=== PATIENT | female | born 1945 | race Caucasian/White ===

== ENCOUNTER 2017-09-03 17:42 | Emergency (ER) | payer OTHER, MEDICAID ==
[~2017-09-03] VITALS: Ht 157.5 cm; Wt 67.1 kg
[~2017-09-03 17:42] MED LIST: GLIP5TAB13 PO; LISI-600 PO; NEU300 PO
[2017-09-03 17:54] VITALS: BP_SYST 130
[2017-09-03 18:24] LABS: EOSINOPHILS # (AUTO) 0.4 K/uL (0.0-0.4); HEMOGLOBIN 11.5 g/dL (12.0-16.0)
[2017-09-03 18:28] LABS: CALCIUM 9.6 mg/dL (8.4-11.0); CREATININE 0.92 mg/dL (0.55-1.30); POTASSIUM 3.8 mmol/L (3.5-5.1)
[2017-09-03 18:29] LABS: BASOPHILS # (AUTO) 0.1 K/uL (0.0-0.2); BASOPHILS % (AUTO) 0.7 % (0.0-2.0); EOSINOPHILS % (AUTO) 6.2 % (0.0-4.0); HEMATOCRIT 33.4 % (36-48); LYMPHOCYTES # (AUTO) 1.8 K/uL (1.0-5.5); LYMPHOCYTES % (AUTO) 25.7 % (20.5-51.5); MEAN CORPUSCULAR HEMOGLOBIN 27 pg (27-31); MEAN CORPUSCULAR HGB CONC 35 % (32-36); MEAN CORPUSCULAR VOLUME 79 fL (79.0-98.0); MONOCYTES # (AUTO) 0.5 K/uL (0.0-1.0); MONOCYTES % (AUTO) 6.3 % (1.7-9.3); NEUTROPHILS # (AUTO) 4.4 K/uL (1.8-7.7); NEUTROPHILS % (AUTO) 61.1 % (40.0-70.0); PLATELET COUNT (AUTO) 370 K/uL (130-430); RED BLOOD CELL COUNT(AUTO) 4.22 MIL/uL (4.2-6.2); RED CELL DISTRIBUTION WIDTH 13.9 % (9.0-15.0); WHITE BLOOD COUNT (AUTO) 7.2 K/uL (4.8-10.8)
[2017-09-03 18:33] LABS: ALBUMIN 3.8 g/dL (3.4-4.8); TOTAL BILIRUBIN 0.2 mg/dL (0.0-1.0)
[2017-09-03] MEDS ORDERED: NACL 0.9% 1,000 ML IV ONE (18:45)
[2017-09-03] MEDS ORDERED: MECLIZINE HCL 25 MG TABLET (ANITVERT) PO ONE (19:15)
[2017-09-03] MEDS ORDERED: DEXTROSE 50% JECT 50 ML DISP.SYRIN ONE (19:44)
[2017-09-03] MEDS ORDERED: DEXTROSE 50% JECT 50 ML DISP.SYRIN IVP ONE (19:45)
[2017-09-03 20:39] VITALS: BP_SYST 143
== END 2017-09-03 20:39 | disposition home or self-care (01) ==
LOC: SED 17:42
DX: E11.65 Type 2 diabetes mellitus with hyperglycemia (principal); I10 Essential (primary) hypertension; Z79.4 Long term (current) use of insulin; Z90.710 Acquired absence of both cervix and uterus; Z86.79 Personal history of other diseases of the circulatory system
CPT/HCPCS: 36415; 70450; 71045; 80053; 84484; 85025; 93005; 96361; 96374; 99285; J7030; J8597

== ENCOUNTER 2017-10-22 15:43 | Outpatient (CLI) | payer OTHER, MEDICAID | END 2017-10-22 20:46 | disposition home or self-care (01) | LOC: SMA 15:43 | PROVIDERS: ATTEND Internal Medicine | DX: Z12.31 Encounter for screening mammogram for malignant neoplasm of breast (principal) | CPT/HCPCS: 77067 ==

== ENCOUNTER 2018-12-09 06:09 | Observation (INO) | payer OTHER, MEDICAID ==
[~2018-12-09] VITALS: Ht 157.5 cm; Wt 68.0 kg
[2018-12-09] MEDS ORDERED: NACL 0.9% 1,000 ML IV ONE (06:13)
[2018-12-09 06:14] VITALS: BP_SYST 150
[2018-12-09] MEDS ORDERED: KETOROLAC TROMETHAMINE 15 MG VIAL IVP ONE (06:30)
[2018-12-09] MEDS ORDERED: ONDANSETRON HCL 4 MG/2 ML VIAL IVP ONE (06:30)
[2018-12-09 06:54] LABS: BASOPHILS % (AUTO) 0.4 % (0.0-2.0); EOSINOPHILS # (AUTO) 0.2 K/uL (0.0-0.4); EOSINOPHILS % (AUTO) 2.7 % (0.0-4.0); HEMATOCRIT 32.7 % (36-48); HEMOGLOBIN 11.2 g/dL (12.0-16.0); LYMPHOCYTES % (AUTO) 12.9 % (20.5-51.5); MEAN CORPUSCULAR HEMOGLOBIN 28 pg (27-31); MEAN CORPUSCULAR HGB CONC 34 % (32-36); MEAN CORPUSCULAR VOLUME 80 fL (79.0-98.0); MONOCYTES # (AUTO) 0.5 K/uL (0.0-1.0); MONOCYTES % (AUTO) 6.9 % (1.7-9.3); NEUTROPHILS % (AUTO) 77.1 % (40.0-70.0); PLATELET COUNT (AUTO) 380 K/uL (130-430); RED BLOOD CELL COUNT(AUTO) 4.07 MIL/uL (4.2-6.2); RED CELL DISTRIBUTION WIDTH 13.7 % (9.0-15.0); WHITE BLOOD COUNT (AUTO) 7.8 K/uL (4.8-10.8)
[2018-12-09 07:05] LABS: ANION GAP 14 (5-15); CALCIUM 8.3 mg/dL (8.4-11.0); CHLORIDE 88 mmol/L (98-107); GLUCOSE 229 mg/dL (70-99); POTASSIUM 3.3 mmol/L (3.5-5.1); SODIUM SERUM 125 mmol/L (136-145); UREA NITROGEN, BLOOD 16 mg/dL (8-21)
[2018-12-09 07:14] LABS: ALANINE AMINOTRANSFERASE 23 U/L (12-78); ALBUMIN 3.5 g/dL (3.4-4.8); ASPARTATE AMINOTRANSFERASE 16 U/L (10-37); TOTAL BILIRUBIN 0.5 mg/dL (0.0-1.0)
[2018-12-09] MEDS ORDERED: ASPIRIN 81 MG TAB.CHEW PO ONE (07:30)
[2018-12-09] MEDS ORDERED: METF1000 PO (07:30)
[2018-12-09] MEDS ORDERED: LOSA25TA3 PO (07:30)
[2018-12-09] MEDS ORDERED: INSU100V SQ (07:30)
[2018-12-09] MEDS ORDERED: INSU100V9 SQ (07:30)
[2018-12-09 08:07] LABS: BILIRUBIN,URINE NEGATIVE (NEGATIVE); BLOOD, URINE NEGATIVE (NEGATIVE); CLARITY/URINE CLEAR (CLEAR); COLOR,URINE YELLOW (YELLOW); GLUCOSE,URINE 1+ (NEGATIVE); KETONES,URINE TRACE (NEGATIVE); LEUKOCYTE ESTERASE ,URINE 1+ (NEGATIVE); NITRITE, URINE NEGATIVE (NEGATIVE); PH,URINE 6.5 (5.0-8.0); PROTEIN URINE NEGATIVE (NEGATIVE); UROBILINOGEN,URINE 0.2 (0.2-1.0)
[2018-12-09 08:11] LABS: BACTERIA,URINE MANY /HPF (None Seen); RBC,URINE 0-3 /HPF (0-3); WBC,URINE 20-50 /HPF (0-3)
[2018-12-09 08:12] VITALS: BP_SYST 139
[2018-12-09] MEDS ORDERED: DEXTROSE 50% JECT 50 ML DISP.SYRIN IVP PRN (10:45)
[2018-12-09] MEDS: NACL 0.9% 1,000 ML IV SCH (13:40)
[2018-12-09 15:22] VITALS: BP_SYST 147
[2018-12-09] MEDS: INSULIN REGULAR, HUMAN 100 UNITS/ML, 10 ML VIAL (humuLIN R) SUBCUT PRN ×2 (17:21→23:45)
[2018-12-09 20:36] VITALS: BP_SYST 142
[2018-12-10 01:27] VITALS: BP_SYST 113
[2018-12-10] MEDS: INSULIN REGULAR, HUMAN 100 UNITS/ML, 10 ML VIAL (humuLIN R) SUBCUT PRN ×2 (05:08→16:08)
[2018-12-10] MEDS: NACL 0.9% 1,000 ML IV SCH (05:09)
[2018-12-10 06:40] LABS: BASOPHILS % (AUTO) 0.6 % (0.0-2.0); EOSINOPHILS # (AUTO) 0.3 K/uL (0.0-0.4); EOSINOPHILS % (AUTO) 5.3 % (0.0-4.0); HEMATOCRIT 31.7 % (36-48); HEMOGLOBIN 10.6 g/dL (12.0-16.0); LYMPHOCYTES # (AUTO) 1.1 K/uL (1.0-5.5); LYMPHOCYTES % (AUTO) 20.3 % (20.5-51.5); MEAN CORPUSCULAR HEMOGLOBIN 28 pg (27-31); MEAN CORPUSCULAR HGB CONC 33 % (32-36); MEAN CORPUSCULAR VOLUME 82 fL (79.0-98.0); MONOCYTES # (AUTO) 0.5 K/uL (0.0-1.0); MONOCYTES % (AUTO) 8.7 % (1.7-9.3); NEUTROPHILS # (AUTO) 3.4 K/uL (1.8-7.7); NEUTROPHILS % (AUTO) 65.1 % (40.0-70.0); PLATELET COUNT (AUTO) 335 K/uL (130-430); RED BLOOD CELL COUNT(AUTO) 3.85 MIL/uL (4.2-6.2); RED CELL DISTRIBUTION WIDTH 13.8 % (9.0-15.0)
[2018-12-10 07:24] LABS: ALANINE AMINOTRANSFERASE 15 U/L (12-78); ALBUMIN 2.8 g/dL (3.4-4.8); ASPARTATE AMINOTRANSFERASE 9 U/L (10-37); CALCIUM 8.3 mg/dL (8.4-11.0); CHLORIDE 104 mmol/L (98-107); CREATININE 0.81 mg/dL (0.55-1.30); GLUCOSE 126 mg/dL (70-99); POTASSIUM 3.9 mmol/L (3.5-5.1); SODIUM SERUM 133 mmol/L (136-145); THYROID STIMULATING HORMONE 1.15 uIu/mL (0.34-4.82); TOTAL BILIRUBIN 0.3 mg/dL (0.0-1.0); UREA NITROGEN, BLOOD 17 mg/dL (8-21)
[2018-12-10 07:32] LABS: ANION GAP < 3 (5-15)
[2018-12-10 07:35] LABS: WHITE BLOOD COUNT (AUTO) 5.3 K/uL (4.8-10.8)
[2018-12-10] MEDS ORDERED: LISINOPRIL 20 MG TABLET PO SCH (09:00)
[2018-12-10 09:27] VITALS: BP_SYST 146
[2018-12-10 12:00] VITALS: BP_SYST 150
[2018-12-10 15:21] VITALS: BP_SYST 150
== END 2018-12-10 16:02 | disposition home or self-care (01) ==
LOC: SED 06:09 → STU 07:40
PROVIDERS: ADMIT Internal Medicine Hospice and Palliative Medicine; ATTEND Internal Medicine Hospice and Palliative Medicine
DX: E87.1 Hypo-osmolality and hyponatremia (principal); R51 Headache; R11.0 Nausea; E11.9 Type 2 diabetes mellitus without complications; Z90.710 Acquired absence of both cervix and uterus; I10 Essential (primary) hypertension; R79.89 Other specified abnormal findings of blood chemistry
CPT/HCPCS: 36415 ×2; 70450; 71045; 80053 ×2; 81000; 82962 ×2; 83605; 84443; 84484; 85025 ×2; 87040; 87086; 87186; 93005; 93306; 96372 ×2; 96374; 96375; 99285; G0378 ×2; J1815; J1885; J2405; J7030 ×2

== ENCOUNTER 2019-01-30 13:36 | Outpatient (CLI) | payer OTHER, MEDICAID ==
[~2019-01-30 13:36] MED LIST changes: -GLIP5TAB13 PO; +INSU100V SQ; +INSU100V9 SQ; +LOSA25TA3 PO; +METF1000 PO; -NEU300 PO
== END 2019-01-31 16:29 | disposition home or self-care (01) ==
LOC: SMA 13:36
PROVIDERS: ATTEND Internal Medicine
DX: Z12.31 Encounter for screening mammogram for malignant neoplasm of breast (principal)
CPT/HCPCS: 77067

== ENCOUNTER 2020-01-07 08:45 | Emergency (ER) | payer OTHER, MEDICAID ==
[~2020-01-07] VITALS: Ht 149.9 cm; Wt 54.4 kg
[2020-01-07 08:50] VITALS: BP_SYST 141
--- NOTE | 2020-01-07 08:51 | NUR ---
Patient presented to ER C/O urinary problem. Patient ambulatory to ER, AAOx4, pain with urination, denies pain at this time, denies N/V/D. Patient states she has urinary frequency, burning with urination, and chills x7 days, PT reports Hx Diabetes.
--- NOTE | 2020-01-07 08:53 | NUR ---
SU Mcfarland at bedside examining patient.
[2020-01-07] MEDS: cefTRIAXone 1 GM in LIDOCAINE 1%, 20 ML MDV 2.1 ML IM ONE (09:45)
[2020-01-07 09:55] VITALS: BP_SYST 138
[2020-01-07 09:55] LABS: BILIRUBIN,URINE NEGATIVE (NEGATIVE); BLOOD, URINE NEGATIVE (NEGATIVE); CLARITY/URINE CLEAR (CLEAR); COLOR,URINE YELLOW (YELLOW); GLUCOSE,URINE TRACE (NEGATIVE); KETONES,URINE NEGATIVE (NEGATIVE); LEUKOCYTE ESTERASE ,URINE 1+ (NEGATIVE); NITRITE, URINE NEGATIVE (NEGATIVE); PH,URINE 6.5 (5.0-8.0); PROTEIN URINE NEGATIVE (NEGATIVE); UROBILINOGEN,URINE 0.2 (0.2-1.0)
--- NOTE | 2020-01-07 09:55 | NUR ---
Patient given written and verbal discharge instructions and verbalizes understanding. ER MD discussed with patient the results and treatment provided. Patient in stable condition. ID arm band removed. IV catheter removed intact and dressing applied, no active bleeding. Rx of MACROBID given. Patient educated on pain management and to follow up with PMD. Pain Scale 0/10. Opportunity for questions provided and answered. Medication side effect fact sheet provided.
[2020-01-07 10:06] LABS: BACTERIA,URINE MODERATE /HPF (None Seen); RBC,URINE 0-3 /HPF (0-3)
== END 2020-01-07 09:55 | disposition home or self-care (01) ==
LOC: SED 08:45
DX: N39.0 Urinary tract infection, site not specified (principal); I10 Essential (primary) hypertension; E11.9 Type 2 diabetes mellitus without complications; Z79.4 Long term (current) use of insulin; Z79.899 Other long term (current) drug therapy
CPT/HCPCS: 81000; 87086; 87186; 96372; 99283; J0696; J2001

== ENCOUNTER 2020-04-26 11:50 | Emergency (ER) | payer OTHER, MEDICAID ==
[~2020-04-26] VITALS: Ht 165.1 cm; Wt 66.7 kg
[2020-04-26 11:50] VITALS: BP_SYST 139
== END 2020-04-26 13:45 | disposition home or self-care (01) ==
LOC: SED 11:50
DX: R30.0 Dysuria (principal); I10 Essential (primary) hypertension; E11.9 Type 2 diabetes mellitus without complications; Z79.4 Long term (current) use of insulin; Z79.899 Other long term (current) drug therapy; Z90.710 Acquired absence of both cervix and uterus
CPT/HCPCS: 81002; 82962; 87086; 99283

== ENCOUNTER 2020-05-01 15:34 | Inpatient (IN) | payer OTHER, MEDICAID, SELFPAY ==
[~2020-05-01] VITALS: Ht 157.5 cm; Wt 68.0 kg
[2020-05-01 15:35] VITALS: BP_SYST 113
--- NOTE | 2020-05-01 15:35 | NUR ---
TRIAGED AND BROUGHT INTO FAST TRACK IMMEDIATELY. PLACED IN BED AND REPORT GIVEN TO GRACIELA
--- NOTE | 2020-05-01 15:45 | NUR ---
PT BIB STATES COUGHING AND SOB FOR LAST 2 DAYS, BODY ACHES, WEAK, FATIGUED. PRESENTS WITH O2 SAT ON ROOM AIR 87-88%. AAOX4, OTHER V/S STABLE
--- NOTE | 2020-05-01 15:46 | NUR ---
PT PLACED ON NC@ 5L/MIN 02 SAT 95%, TOLERATING WELL
--- NOTE | 2020-05-01 16:15 | NUR ---
# 22 gauge angiocath placed to R HAND. Use of asceptic technique. Opsite placed over site. Blood return noted. Blood for lab drawn from site. Flushed with 10 cc of normal saline. No evidence of infiltration noted. Patient tolerated well.
--- NOTE | 2020-05-01 16:15 | NUR ---
PORTABLE X-RAY AT THE BEDSIDE
[2020-05-01 17:09] LABS: BASOPHILS % (AUTO) 0.4 % (0.0-2.0); EOSINOPHILS % (AUTO) 0.1 % (0.0-4.0); HEMATOCRIT 32.4 % (36-48); HEMOGLOBIN 10.9 g/dL (12.0-16.0); LYMPHOCYTES # (AUTO) 0.6 K/uL (1.0-5.5); LYMPHOCYTES % (AUTO) 7.4 % (20.5-51.5); MEAN CORPUSCULAR HEMOGLOBIN 27 pg (27-31); MEAN CORPUSCULAR HGB CONC 34 % (32-36); MEAN CORPUSCULAR VOLUME 80 fL (79.0-98.0); MONOCYTES # (AUTO) 0.5 K/uL (0.0-1.0); MONOCYTES % (AUTO) 5.6 % (1.7-9.3); NEUTROPHILS # (AUTO) 7.2 K/uL (1.8-7.7); NEUTROPHILS % (AUTO) 86.5 % (40.0-70.0); PLATELET COUNT (AUTO) 320 K/uL (130-430); RED BLOOD CELL COUNT(AUTO) 4.04 MIL/uL (4.2-6.2); RED CELL DISTRIBUTION WIDTH 14.4 % (9.0-15.0); WHITE BLOOD COUNT (AUTO) 8.3 K/uL (4.8-10.8)
[2020-05-01 17:32] LABS: ANION GAP 13 (5-15); CALCIUM 7.7 mg/dL (8.4-11.0); CHLORIDE 93 mmol/L (98-107); CREATININE 1.42 mg/dL (0.55-1.30); GLUCOSE 244 mg/dL (70-99); POTASSIUM 3.8 mmol/L (3.5-5.1); SODIUM SERUM 126 mmol/L (136-145); UREA NITROGEN, BLOOD 24 mg/dL (8-21)
[2020-05-01 17:37] LABS: ALANINE AMINOTRANSFERASE 20 U/L (12-78); ALBUMIN 2.8 g/dL (3.4-4.8); ASPARTATE AMINOTRANSFERASE 26 U/L (10-37); TOTAL BILIRUBIN 0.3 mg/dL (0.0-1.0)
--- NOTE | 2020-05-01 17:58 | NUR ---
# 16 FR In and Out catheter with use of sterile technique. Immediate return of 20 ml CLEAR, YELLOW urine noted. Urine sample collected and sent to lab. Pt tolerated procedure WELL. Patient unable to toilet self.
[2020-05-01 18:22] LABS: BILIRUBIN,URINE NEGATIVE (NEGATIVE); BLOOD, URINE NEGATIVE (NEGATIVE); COLOR,URINE YELLOW (YELLOW); GLUCOSE,URINE TRACE (NEGATIVE); KETONES,URINE TRACE (NEGATIVE); LEUKOCYTE ESTERASE ,URINE NEGATIVE (NEGATIVE); NITRITE, URINE NEGATIVE (NEGATIVE); PROTEIN URINE 1+ (NEGATIVE); UROBILINOGEN,URINE 0.2 (0.2-1.0)
[2020-05-01 18:32] LABS: INR 0.9 (0.8-1.2); PROTHROMBIN TIME 9.2 SECS (9.5-12.5)
[2020-05-01 18:41] LABS: CLARITY/URINE SLIGHTLY HAZY (CLEAR)
[2020-05-01 18:45] LABS: BACTERIA,URINE FEW /HPF (None Seen); MUCUS,URINE None Seen /LPF (None Seen); RBC,URINE NONE SEEN /HPF (0-3); URINE AMORPHOUS URATE 2+ /HPF (None Seen); WBC,URINE 0-3 /HPF (0-3)
[2020-05-01] MEDS ORDERED: MAG-AL HYDROX/SIMETH 30 ML UDC PO ONE (19:00)
[2020-05-01] MEDS ORDERED: ONDANSETRON HCL 4 MG/2 ML VIAL IVP ONE (19:00)
[2020-05-01] MEDS ORDERED: ACETAMINOPHEN 650 MG SUPP.RECT RC ONE (19:00)
[2020-05-01] MEDS ORDERED: ACETAMINOPHEN 500 MG TABLET ONE (19:11)
[2020-05-01] MEDS ORDERED: AZITHROMYCIN 500 MG in NS 250 ML IV SCH (19:15)
--- NOTE | 2020-05-01 19:18 | NUR ---
O2 SAT DECREASING, PT PLACED ON SIMPLE MASK@ 7L/MIN, O2 SAT 96%
[2020-05-01] MEDS ORDERED: cefTRIAXone 2 GM VIAL ONE (19:33)
[2020-05-01] MEDS ORDERED: AZITHROMYCIN 500 MG/VIAL (ZITHROMAX) IV ONE (19:33)
--- NOTE | 2020-05-01 19:45 | NUR ---
REPORT GIVEN TO CHAY CLAROS FOR CONTINUING CARE
--- NOTE | 2020-05-01 19:47 | NUR ---
Report received from Ginger CARTWRIGHT for continuation of care.
[2020-05-01] MEDS ORDERED: DEXAMETHASONE SOD PHOSPHATE 10 MG/ML VIAL IVP SCH (20:30)
--- NOTE | 2020-05-01 21:00 | NUR ---
Pt moved to bed 8.
[2020-05-01] MEDS ORDERED: ENOXAPARIN SODIUM 30 MG/0.3 ML SYRINGE ONE (22:17)
[2020-05-01 22:38] LABS: FIBRINOGEN 510 mg/dL (200-400)
--- NOTE | 2020-05-01 22:42 | NUR ---
Update given to daughter Lizzy.
[2020-05-01] MEDS: ENOXAPARIN SODIUM 30 MG/0.3 ML SYRINGE SUBCUT SCH (22:50)
--- NOTE | 2020-05-01 23:37 | NUR ---
[facility].
--- NOTE | 2020-05-01 23:44 | NUR ---
ADMISSION NOTE Received patient from ER via gurney. Patient admitted with diagnosis of COVID PNA. Patient is awake, alert, oriented X 4. Patient oriented to hospital room, call light, toileting, pain management and safety-teach back done. Patient informed that HIGINIO will be HER nurse and that their room number is 131B. Personal belongings checked and Belongings List documented. Call light within reach.
[2020-05-01 23:45] VITALS: BP_SYST 110
[2020-05-01] MEDS: NORMAL SALINE 5 ML DISP.SYRIN IVF SCH (23:53)
--- NOTE | 2020-05-01 23:53 | NUR ---
Endorsed accucheck to Julissa CARTWRIGHT. POC not working in ER.
--- NOTE | 2020-05-02 02:58 | NUR ---
CONSULTATION PAGED/CALLED Reason for Consultation: COVID Person Who was Notified: GERALDO Consulting Physician: CAROL Special Shopper Specialty: Ordering Physician: MARCIA
[2020-05-02] MEDS: INSULIN REGULAR, HUMAN 100 UNITS/ML, 10 ML VIAL (humuLIN R) SUBCUT PRN ×2 (05:28→11:32)
[2020-05-02] MEDS: NORMAL SALINE 5 ML DISP.SYRIN IVF SCH ×3 (05:31→23:07)
[2020-05-02 08:00] VITALS: BP_SYST 101
[2020-05-02 08:35] LABS: BASOPHILS % (AUTO) 0.1 % (0.0-2.0); HEMATOCRIT 30.6 % (36-48); HEMOGLOBIN 10.1 g/dL (12.0-16.0); LYMPHOCYTES # (AUTO) 0.4 K/uL (1.0-5.5); MEAN CORPUSCULAR HEMOGLOBIN 27 pg (27-31); MEAN CORPUSCULAR HGB CONC 33 % (32-36); MEAN CORPUSCULAR VOLUME 82 fL (79.0-98.0); MONOCYTES # (AUTO) 0.1 K/uL (0.0-1.0); MONOCYTES % (AUTO) 3.2 % (1.7-9.3); NEUTROPHILS % (AUTO) 88.7 % (40.0-70.0); PLATELET COUNT (AUTO) 311 K/uL (130-430); RED BLOOD CELL COUNT(AUTO) 3.76 MIL/uL (4.2-6.2); RED CELL DISTRIBUTION WIDTH 14.2 % (9.0-15.0); WHITE BLOOD COUNT (AUTO) 4.5 K/uL (4.8-10.8)
[2020-05-02] MEDS: lisinopriL 20 MG TABLET PO SCH (08:35)
[2020-05-02] MEDS ORDERED: ENOXAPARIN SODIUM 40 MG/0.4 ML SYRINGE ONE (08:39)
[2020-05-02] MEDS: ENOXAPARIN SODIUM 30 MG/0.3 ML SYRINGE SUBCUT SCH ×2 (08:43→21:00)
[2020-05-02] MEDS ORDERED: ENOXAPARIN SODIUM 30 MG/0.3 ML SYRINGE ONE ×2 (08:43→20:38)
[2020-05-02 09:00] LABS: ALANINE AMINOTRANSFERASE 16 U/L (12-78); ALBUMIN 2.5 g/dL (3.4-4.8); ANION GAP 16 (5-15); ASPARTATE AMINOTRANSFERASE 22 U/L (10-37); CALCIUM 8.3 mg/dL (8.4-11.0); CHLORIDE 97 mmol/L (98-107); POTASSIUM 4.8 mmol/L (3.5-5.1); SODIUM SERUM 130 mmol/L (136-145); TOTAL BILIRUBIN 0.3 mg/dL (0.0-1.0); UREA NITROGEN, BLOOD 30 mg/dL (8-21)
[2020-05-02 09:47] LABS: GLUCOSE 491 mg/dL (70-99)
[2020-05-02 11:16] VITALS: BP_SYST 142
[2020-05-02 11:43] LABS: C-REACTIVE PROTEIN QUANT 13.8 mg/dL (0-0.5)
[2020-05-02] MEDS ORDERED: INSULIN GLARGINE 100 UNITS/ML 10 ML VIAL SUBCUT ONE (12:30)
--- NOTE | 2020-05-02 12:34 | NUR ---
HIGH ALERT NOTE: Called Dr. Ramos back at phone no. [phone] identified within the medical roster to verify physician authenticity for insulin orders humalog sliding scale and lantus 25 units SC one dose now and bedtime daily
[2020-05-02] MEDS ORDERED: DEXTROSE 50%-WATER 50 ML DISP.SYRIN IVP PRN (12:45)
[2020-05-02] MEDS ORDERED: D5W 1,000 ML IV PRN (12:45)
[2020-05-02] MEDS ORDERED: GLUCOSE (DEXTROSE) ORAL GEL -Adults PO PRN (12:45)
[2020-05-02 13:42] VITALS: BP_SYST 115
--- NOTE | 2020-05-02 14:20 | NUR ---
Note Spoke to pt's daughter Lizzy and questions/concerns were answered at this time. Update on pt's status given. Call light within reach.
--- NOTE | 2020-05-02 16:30 | NUR ---
Note Pt was given hygiene care for urine incontinence in bed. Pt able to turn from side to side in bed. Pt has had her O2 at 6L/nc. Call light within reach.
[2020-05-02] MEDS: INSULIN LISPRO SLIDING SCALE 100 UNITS/ML VIAL (humaLOG) SUBCUT PRN (16:40)
[2020-05-02] MEDS: HYDROcodone/ACETAMIN 5-325 MG TAB (NORCO/ VICODIN) PO PRN (16:40)
--- NOTE | 2020-05-02 17:05 | NUR ---
Note Dr Lugo ([facility]) on the floor to assess pt and write orders at this time.
[2020-05-02 17:10] VITALS: BP_SYST 130
[2020-05-02] MEDS: NACL 0.9% 1,000 ML IV SCH (17:49)
[2020-05-02] MEDS: AZITHROMYCIN 500 MG in NS 250 ML IV SCH (18:39)
--- NOTE | 2020-05-02 18:40 | NUR ---
Note Pt sitting up in bed eating her dinner. IVF's infusing through right hand IV site. Pt was checked on q1' and PRN all shift for needs and care. Call light within reach.
[2020-05-02] MEDS ORDERED: DEXAMETHASONE SOD PHOSPHATE 10 MG/ML VIAL IVP SCH (20:30)
[2020-05-02] MEDS: DEXAMETHASONE SOD PHOSPHATE 10 MG/ML VIAL IVP SCH (21:00)
[2020-05-02] MEDS: INSULIN GLARGINE 100 UNITS/ML 10 ML VIAL SUBCUT SCH (22:15)
[2020-05-02 23:38] VITALS: BP_SYST 119
[2020-05-03 01:33] VITALS: BP_SYST 130
[2020-05-03] MEDS: NACL 0.9% 1,000 ML IV SCH ×3 (03:15→23:51)
[2020-05-03] MEDS: NORMAL SALINE 5 ML DISP.SYRIN IVF SCH ×3 (05:06→21:05)
--- NOTE | 2020-05-03 05:55 | NUR ---
This RN successfully placed new 22g IV access in pt RFA. Flushed, blood return noted with no pain or infiltration. Will continue to monitor.
[2020-05-03 08:00] VITALS: BP_SYST 132
[2020-05-03 08:03] LABS: ALANINE AMINOTRANSFERASE 17 U/L (12-78); ALBUMIN 2.3 g/dL (3.4-4.8); ANION GAP 11 (5-15); ASPARTATE AMINOTRANSFERASE 21 U/L (10-37); CALCIUM 7.9 mg/dL (8.4-11.0); CHLORIDE 102 mmol/L (98-107); CREATININE 1.04 mg/dL (0.55-1.30); GLUCOSE 327 mg/dL (70-99); POTASSIUM 4.5 mmol/L (3.5-5.1); SODIUM SERUM 136 mmol/L (136-145); TOTAL BILIRUBIN 0.2 mg/dL (0.0-1.0); UREA NITROGEN, BLOOD 26 mg/dL (8-21)
[2020-05-03] MEDS ORDERED: ENOXAPARIN SODIUM 30 MG/0.3 ML SYRINGE ONE ×2 (08:23→20:10)
[2020-05-03] MEDS: lisinopriL 20 MG TABLET PO SCH (08:24)
[2020-05-03] MEDS: ENOXAPARIN SODIUM 30 MG/0.3 ML SYRINGE SUBCUT SCH ×2 (08:24→21:04)
[2020-05-03] MEDS: HYDROcodone/ACETAMIN 5-325 MG TAB (NORCO/ VICODIN) PO PRN (08:40)
[2020-05-03] MEDS: INSULIN LISPRO SLIDING SCALE 100 UNITS/ML VIAL (humaLOG) SUBCUT PRN ×2 (12:33→18:07)
[2020-05-03 18:10] VITALS: BP_SYST 136
--- NOTE | 2020-05-03 18:50 | NUR ---
NOTE pT RESTING IN BED WITH HOB AT 75' TO EAT HER DINNER. PT HAS O2 ON AT 6/NC. IV IN RIGHT FOREARM INTACT AND PATENT INFUSING IVF'S WELL. PT WAS CHECKED ON Q1' AND PRN ALL SHIFT FOR NEEDS AND CARE. CALL LIGHT WITHIN REACH. SPOKE TO PT'S DAUGHTER MARY AND UPDATE ON PT'S STATUS GIVEN AND QUESTIONS/CONCERNS WERE ANSWERED.
[2020-05-03] MEDS ORDERED: guaiFENesin/DEXTROMETHORPHAN 10 ML UDC PO PRN (19:00)
[2020-05-03] MEDS: AZITHROMYCIN 500 MG in NS 250 ML IV SCH (19:15)
[2020-05-03 20:53] VITALS: BP_SYST 138
[2020-05-03] MEDS: INSULIN GLARGINE 100 UNITS/ML 10 ML VIAL SUBCUT SCH (21:00)
[2020-05-03] MEDS: DEXAMETHASONE SOD PHOSPHATE 10 MG/ML VIAL IVP SCH (21:03)
[2020-05-03] MEDS ORDERED: DIPHENHYDRAMINE INJ 50 MG/ML VIAL ONE (22:45)
[2020-05-03] MEDS ORDERED: guaiFENesin 200 MG/CODEINE 20 MG/ 10 ML UDC PO ONE (22:45)
[2020-05-04 02:24] VITALS: BP_SYST 135
--- NOTE | 2020-05-04 03:32 | NUR ---
Pt O2 sats at 79-80% on 6L NC. This RN placed pt on 12L NRB mask and pt O2 started to slowly increase. Reassessed pt after ten mins and pt satting at 85%. Paged Dr. Rios to make aware. MD ordered robitussin w/ codeine and IV benedryl and OKd for this RN to stop fluids. Administered per MD order. Per MD, possible upgrade to ICU if pt remains unstable. Will continue to monitor. Pt currently stable, O2 sat at 94% on 8L NC and sleeping comfortably. Will continue to monitor. Addendum: 05/04/20 at 0455 by Maribel Blackburn RN Pt O2 satting at 87% on 8L. This RN went to assess and change pt. Pt dropped down to the 70s. This RN increased O2 to 10L NC on green tubing with no success. Placed pt on NRB mask and O2 came up to 92%. Will continue to monitor.
[2020-05-04] MEDS: NORMAL SALINE 5 ML DISP.SYRIN IVF SCH ×3 (05:10→23:24)
[2020-05-04] MEDS: HYDROcodone/ACETAMIN 5-325 MG TAB (NORCO/ VICODIN) PO PRN ×2 (05:11→23:26)
[2020-05-04] MEDS: INSULIN LISPRO SLIDING SCALE 100 UNITS/ML VIAL (humaLOG) SUBCUT PRN ×2 (06:32→13:27)
[2020-05-04 08:33] LABS: ALANINE AMINOTRANSFERASE 16 U/L (12-78); ALBUMIN 2.2 g/dL (3.4-4.8); ANION GAP 11 (5-15); ASPARTATE AMINOTRANSFERASE 22 U/L (10-37); CALCIUM 7.6 mg/dL (8.4-11.0); CHLORIDE 104 mmol/L (98-107); CREATININE 1.01 mg/dL (0.55-1.30); GLUCOSE 220 mg/dL (70-99); POTASSIUM 4.1 mmol/L (3.5-5.1); SODIUM SERUM 138 mmol/L (136-145); TOTAL BILIRUBIN 0.2 mg/dL (0.0-1.0); UREA NITROGEN, BLOOD 26 mg/dL (8-21)
[2020-05-04] MEDS ORDERED: ENOXAPARIN SODIUM 30 MG/0.3 ML SYRINGE ONE (08:45)
[2020-05-04] MEDS: NACL 0.9% 1,000 ML IV SCH (09:15)
[2020-05-04 09:39] VITALS: BP_SYST 146
[2020-05-04] MEDS: ENOXAPARIN SODIUM 30 MG/0.3 ML SYRINGE SUBCUT SCH ×2 (09:39→21:00)
[2020-05-04] MEDS: lisinopriL 20 MG TABLET PO SCH (09:45)
[2020-05-04 10:19] LABS: C-REACTIVE PROTEIN QUANT 6.2 mg/dL (0-0.5)
--- NOTE | 2020-05-04 10:21 | NUR ---
INCONTINENCE CARE PATIENTS SCHEDULED MEDICATION GIVEN PER ORDER. PATIENT IS AWAKE AND ALERT. PATIENT SHOWS LABORED BREATHING UPON TURNING AND INCONTINENCE CARE. PATIENT PLACED ON NON REBREATHER 100%. PATIENT IS SITTING IN HIGH FOLWERS IN BED. PATIENT IS COUGHING NO PHLEM NOTED DRY COUGH. PATIENT SPO2 DROPPED TO 78% WHILE TURING AFTER SITTING UP PATIENT AND PUTTING ON NON REBREATHER PATIENTSPO2 IMPROVED TO 90%. PATIENT EDUCATED NO CALL LIGHT IS WITH PATIENT.
[2020-05-04 11:52] VITALS: BP_SYST 146
--- NOTE | 2020-05-04 12:59 | NUR ---
SPOKE WITH DR. MARS INFORMED MD THAT PATIENT IS TACHYPNEIC AND HAVING LABORED BREATHING. PATIENT IS ON NON REBREATHER 15L AND SPO2 IS GOING DOWN TO 84% WHILE SITTING UP IN BED.INFORMED RT THAT NEW ORDER FOR BIPAP. PATIENT EDUCATED TO TAKE SLOW SLEEP BREATHS. PATIENT IS HAS ALL SAFETY PRECAUTIONS IN PLACE. PATIENT IS CLOSE TO NURSES STATION. Addendum: 05/04/20 at 1327 by Marina Suárez RN NO COVERAGE WAS GIVEN FOR BS 188 DUE TO PATIENT IS NOT EATING AND ABLE TO EAT.
--- NOTE | 2020-05-04 13:10 | NUR ---
SPOKE WITH PATIENTS SPOUSE OK PER CHART. INFORMED ON PLAN OF CARE ALL QUESTIONS WERE ANSWERED. NO OTHER NEEDS AT THIS TIME.
--- NOTE | 2020-05-04 14:27 | NUR ---
IRLANDA RIVERA FOR IV FLUID ORDER WELL ANTIANXIETY MEDICATION. PATIENT IS HAVING ANXIETY REGARDING THE BI PAP MASK. EDUCATED PATIENT SHE NEEDS TO KEEP BREATHING THROUGH THE MASK AND NOT TAKE IT OFF. PATIENT VERBALIZED UNDERSTANDING. Addendum: 05/04/20 at 1549 by Marina Suárez RN NURSE SPOKE WITH MD RECEIVED ORDERS.
[2020-05-04 15:02] VITALS: BP_SYST 147
[2020-05-04 16:39] VITALS: BP_SYST 128
--- NOTE | 2020-05-04 17:36 | NUR ---
ACCU CHECK DONE PATIENT IS NOT EATING OR DRINKING NO COVERAGE GIVEN. PATIENT ABG DRAWN.
--- NOTE | 2020-05-04 18:15 | NUR ---
SPOKE MD AND HE STATES PATIENT CAN COME OF BI PAP, YOU ONLY NEEDED OR AT NIGHT TIME.
--- NOTE | 2020-05-04 18:51 | NUR ---
RN CLOSING NOTE PATIENT IS AWAKE AND ALERT, BI PAP REMOVED OK PER MD. PATIENT PLACED ON NON REBREATHER 15L, PATIENT IS TOELRATING WELL WITH SPO2 92%. PATIENT EDUCATED FEED IN WORKER LIGHT FOR ASSISTANCE, CALL LIGHT IS WITH PATIENT. PATIENT IS CLOSE OT NURSES STATION. PATIENT HAS NO OTHER NEEDS AT THIS TIME. INSUFFICIENT CHARTING DUE TO COVID AND OUT OF RATIO. Addendum: 05/04/20 at 4 by Marina Suárez RN ALL NEEDS WERE MET THROUGHOUT SHIFT, MONITORED EVERY HOUR.
[2020-05-04] MEDS: AZITHROMYCIN 500 MG in NS 250 ML IV SCH (19:15)
[2020-05-04] MEDS: INSULIN GLARGINE 100 UNITS/ML 10 ML VIAL SUBCUT SCH (21:00)
[2020-05-04] MEDS: DEXAMETHASONE SOD PHOSPHATE 10 MG/ML VIAL IVP SCH (21:00)
[2020-05-04] MEDS: DIPHENHYDRAMINE INJ 50 MG/ML VIAL IVP PRN (23:25)
[2020-05-04 23:27] VITALS: BP_SYST 165
[2020-05-05] VITALS (24 sets, daily range): BP systolic 145–180
[2020-05-05] MEDS: NORMAL SALINE 5 ML DISP.SYRIN IVF SCH ×3 (06:31→22:25)
[2020-05-05 06:52] LABS: ALANINE AMINOTRANSFERASE 20 U/L (12-78); ALBUMIN 2.1 g/dL (3.4-4.8); ANION GAP 9 (5-15); ASPARTATE AMINOTRANSFERASE 21 U/L (10-37); CALCIUM 7.5 mg/dL (8.4-11.0); CHLORIDE 102 mmol/L (98-107); CREATININE 0.95 mg/dL (0.55-1.30); GLUCOSE 288 mg/dL (70-99); POTASSIUM 4.6 mmol/L (3.5-5.1); SODIUM SERUM 136 mmol/L (136-145); TOTAL BILIRUBIN 0.2 mg/dL (0.0-1.0); UREA NITROGEN, BLOOD 23 mg/dL (8-21)
[2020-05-05] MEDS: INSULIN LISPRO SLIDING SCALE 100 UNITS/ML VIAL (humaLOG) SUBCUT PRN ×4 (07:00→20:21)
--- NOTE | 2020-05-05 07:30 | NUR ---
Opening Received report on pt. Pt currently asleep, arousable. On 100% NRB. Provided pt with breakfast tray. IVs intact, saline locked. No acute signs of distress noted at this time.
--- NOTE | 2020-05-05 08:59 | NUR ---
Updates given to pt's Rd, discussed plan of care for the day.
[2020-05-05] MEDS: lisinopriL 20 MG TABLET PO SCH (09:00)
[2020-05-05] MEDS: ENOXAPARIN SODIUM 30 MG/0.3 ML SYRINGE SUBCUT SCH ×2 (10:00→20:26)
--- NOTE | 2020-05-05 12:00 | NUR ---
No changes since last assessment. Pt states no pain or distress at this time. Remains on NRB 15L 100%, saturating at 98-100% at rest. Pt still with occasional nonproductive cough. Encouraged pt to turn in bed and reposition frequently. Also educated pt regarding estrada catheter insertion to avoid extra exertion of energy and desaturation, pt is agreeable. Informed pt's regarding estrada catheter placement, both are aware of potential risk for infection but are agreeable.
[2020-05-05] MEDS ORDERED: ENOXAPARIN SODIUM 30 MG/0.3 ML SYRINGE ONE ×2 (12:09→20:26)
[2020-05-05] MEDS: HYDROcodone/ACETAMIN 5-325 MG TAB (NORCO/ VICODIN) PO PRN (14:00)
--- NOTE | 2020-05-05 14:30 | NUR ---
ARRINGTON CATH: # 16 FR Arrington catheter with 10 cc bulb inserted with use of sterile technique. Bulb inflated with 10 cc sterile water. Immediate return of cloudy yellow urine noted. Bedside drainage bag placed below level of bladder. Pt tolerated procedure well.
--- NOTE | 2020-05-05 15:30 | NUR ---
Dr. Rachel hernandez, spoke with exchange.
--- NOTE | 2020-05-05 17:00 | NUR ---
Dr. Ramos return call, made aware of pt's elevated BP. New orders made.
[2020-05-05] MEDS: cloNIDine HCL 0.1 MG TABLET PO PRN (17:31)
[2020-05-05] MEDS ORDERED: cloNIDine HCL 0.1 MG TABLET ONE (17:33)
--- NOTE | 2020-05-05 19:20 | NUR ---
Closing Pt awake eating dinner. Pt states no pain or distress at this time. Hazel draining urine to gravity. Will endorse plan of care to RN.
[2020-05-05] MEDS: AZITHROMYCIN 500 MG in NS 250 ML IV SCH (20:18)
[2020-05-05] MEDS: INSULIN GLARGINE 100 UNITS/ML 10 ML VIAL SUBCUT SCH (20:22)
[2020-05-05] MEDS: DEXAMETHASONE SOD PHOSPHATE 10 MG/ML VIAL IVP SCH (20:25)
[2020-05-06] VITALS (25 sets, daily range): BP systolic 134–196
--- NOTE | 2020-05-06 01:32 | NUR ---
PATIENT COMPLAINING OF HEADACHE. PRN PAIN MEDICATION WILL BE ADMINISTERED.
[2020-05-06] MEDS: HYDROcodone/ACETAMIN 5-325 MG TAB (NORCO/ VICODIN) PO PRN ×4 (01:37→23:38)
--- NOTE | 2020-05-06 03:35 | NUR ---
Patient complained of headache and prn pain medication was given. Patient denies any pain at this time. Will continue to monitor patient closely for any acute changes.
[2020-05-06 07:16] LABS: ALANINE AMINOTRANSFERASE 18 U/L (12-78); ALBUMIN 1.9 g/dL (3.4-4.8); ANION GAP 10 (5-15); ASPARTATE AMINOTRANSFERASE 15 U/L (10-37); CALCIUM 7.5 mg/dL (8.4-11.0); CHLORIDE 101 mmol/L (98-107); CREATININE 0.87 mg/dL (0.55-1.30); GLUCOSE 275 mg/dL (70-99); POTASSIUM 4.5 mmol/L (3.5-5.1); SODIUM SERUM 136 mmol/L (136-145); TOTAL BILIRUBIN 0.2 mg/dL (0.0-1.0); UREA NITROGEN, BLOOD 22 mg/dL (8-21)
[2020-05-06] MEDS: NORMAL SALINE 5 ML DISP.SYRIN IVF SCH ×3 (07:16→22:00)
[2020-05-06] MEDS: INSULIN LISPRO SLIDING SCALE 100 UNITS/ML VIAL (humaLOG) SUBCUT PRN ×4 (07:17→23:37)
[2020-05-06 07:19] LABS: BASOPHILS % (AUTO) 0.1 % (0.0-2.0); HEMATOCRIT 27.7 % (36-48); HEMOGLOBIN 9.5 g/dL (12.0-16.0); LYMPHOCYTES # (AUTO) 0.3 K/uL (1.0-5.5); LYMPHOCYTES % (AUTO) 3.3 % (20.5-51.5); MEAN CORPUSCULAR HEMOGLOBIN 27 pg (27-31); MEAN CORPUSCULAR HGB CONC 34 % (32-36); MEAN CORPUSCULAR VOLUME 80 fL (79.0-98.0); MONOCYTES # (AUTO) 0.3 K/uL (0.0-1.0); MONOCYTES % (AUTO) 3.3 % (1.7-9.3); NEUTROPHILS # (AUTO) 8.1 K/uL (1.8-7.7); NEUTROPHILS % (AUTO) 93.3 % (40.0-70.0); PLATELET COUNT (AUTO) 362 K/uL (130-430); RED BLOOD CELL COUNT(AUTO) 3.46 MIL/uL (4.2-6.2); RED CELL DISTRIBUTION WIDTH 14.2 % (9.0-15.0); WHITE BLOOD COUNT (AUTO) 8.6 K/uL (4.8-10.8)
--- NOTE | 2020-05-06 07:29 | NUR ---
OPENING NOTES: RC'VD REPORT FROM OUT GOING NURSE, ALL CARE ASSUMED. ALL SAFETY PRECAUTIONS IN PLACE.
--- NOTE | 2020-05-06 07:54 | NUR ---
FAMILY UPDATE: VERBAL UPDATE GIVEN TO ON PHONE, ALL QUESTIONS ANSWERED AT THIS TIME.
[2020-05-06] MEDS: lisinopriL 20 MG TABLET PO SCH (08:52)
[2020-05-06] MEDS ORDERED: ENOXAPARIN SODIUM 30 MG/0.3 ML SYRINGE ONE ×2 (10:07→20:43)
[2020-05-06] MEDS: ENOXAPARIN SODIUM 30 MG/0.3 ML SYRINGE SUBCUT SCH ×2 (10:08→21:00)
--- NOTE | 2020-05-06 10:25 | NUR ---
RN ROUNDS: OFFERED PATIENTS FLUIDS, LINENS CHANGED, BED IN LOWEST LOCKED POSITION, CALL LIGHT IN REACH, PATIENT DEMONSTRATED USE OF CALL LIGHT. DENIES PAIN AND OR DISCOMFORT. ALL NEEDS MET AT THIS TIME.
--- NOTE | 2020-05-06 10:43 | NUR ---
Dietitian Recommendations * [facility] w/ Glucerna TID (ONS provides 660 kcal/day, 30 gm protein/day) * Encourage increase PO intakes LP, RD Please refer to Nutrition Assessment for details. Addendum: 05/06/20 at [address] Amended: Links added.
[2020-05-06] MEDS: cloNIDine HCL 0.1 MG TABLET PO PRN ×2 (11:05→17:24)
[2020-05-06] MEDS ORDERED: cloNIDine HCL 0.1 MG TABLET ONE ×2 (11:05→17:17)
--- NOTE | 2020-05-06 11:05 | NUR ---
PRN RX: BP 195/73, PRN CLONIDINE GIVEN. WILL RE-ASSESS.
--- NOTE | 2020-05-06 11:45 | NUR ---
PRN RX: PRN CLONIDINE EFFECTIVE.
--- NOTE | 2020-05-06 17:24 | NUR ---
PRN RX: BP 195/85, PRN CLONIDINE GIVEN. WILL RE-ASSESS.
--- NOTE | 2020-05-06 18:27 | NUR ---
PRN RX: PRN CLONIDINE EFFECTIVE.
--- NOTE | 2020-05-06 18:27 | NUR ---
TRANSFER: ORDER RCVD TO TRANSFER PATIENT TO TELEMETRY
--- NOTE | 2020-05-06 19:24 | NUR ---
CLOSING NOTE: REPORT GIVEN TO NOC RN, ALL CARES ENDORSED
--- NOTE | 2020-05-06 19:30 | NUR ---
report received from Autumn, off-going nurse. Patient awake, alert, and oriented x2. Unsure of date. Requests refill on h2o; provided. Hazel draining clear yellow urine of adequate amount. VSS. Toleratling 13L NC 02 with sats 99%. Orders for tx to floor bed noted. Pt c/o "discomfort," placing hands on head. Will provide prn for pain.
--- NOTE | 2020-05-06 20:15 | NUR ---
SPOUSE CALLED, REQUESTING UPDATE ON PATIENT'S CONDITION. UPDATED.
[2020-05-06] MEDS: DEXAMETHASONE SOD PHOSPHATE 10 MG/ML VIAL IVP SCH (20:59)
[2020-05-06] MEDS: INSULIN GLARGINE 100 UNITS/ML 10 ML VIAL SUBCUT SCH (21:00)
--- NOTE | 2020-05-06 21:00 | NUR ---
PT REQUESTING MEAL; COMPLETED 1 CARTON MILK, SUGAR FREE JELLO, AND 1 HALF TURKEY SANDWHICH WITHOUT DIFFICULTY. SATS REMAIN STABLE.
--- NOTE | 2020-05-06 23:30 | NUR ---
PT TRANSFERRED TO MS/T BED, ROOM 135B, WITH PORTABLE OXYGEN AND MONITOR. BEDSIDE REPORT GIVEN TO CHAY ANDERSON. PT STABLE AT TIME OF TRANSFER. PHONE/AIR ROUTE CONTROLLER AT BEDSIDE REQUESTED. PT TOLERATED WELL.
--- NOTE | 2020-05-06 23:40 | NUR ---
NOTES RECEIVED PATIENT FROM ICU, AWAKE, ALERT, ORIENTED, ON 02 13L NC, O2 SAT 98%, DENIES PAIN AT THIS TIME. ASSESSMENT DONE AND DOCUMENTED. SEE FLOWSHEET. NEEDS ATTENDED TO. SAFETY AND FALL MEASURES IN PLACED. BED IN LOW AND LOCKED POSITION. CALL LIGHT PLACED WITHIN REACH.
[2020-05-07] MEDS: DIPHENHYDRAMINE INJ 50 MG/ML VIAL IVP PRN ×2 (01:08→23:18)
--- NOTE | 2020-05-07 02:15 | NUR ---
ROUNDS PATIENT ASLEEP, NO SOB NR PAIN AND DISCOMFORT NOTED, RESPIRATIONS EVEN AND UNLABORED. WILL CONTINUE TO MONITOR.
[2020-05-07] MEDS: INSULIN LISPRO SLIDING SCALE 100 UNITS/ML VIAL (humaLOG) SUBCUT PRN ×4 (06:17→20:27)
[2020-05-07] MEDS: NORMAL SALINE 5 ML DISP.SYRIN IVF SCH ×3 (06:20→23:17)
--- NOTE | 2020-05-07 06:50 | NUR ---
CLOSING NOTES PATIENT AWAKE, NO COMPLAINTS AT THIS TIME, ALL NEEDS ATTENDED TO. SAFETY MEASURES MAINTAINED. CALL LIGHT PLACED WITHIN REACH.
[2020-05-07] MEDS ORDERED: ENOXAPARIN SODIUM 40 MG/0.4 ML SYRINGE ONE (09:56)
[2020-05-07] MEDS: lisinopriL 20 MG TABLET PO SCH (10:00)
[2020-05-07] MEDS: ENOXAPARIN SODIUM 30 MG/0.3 ML SYRINGE SUBCUT SCH ×2 (10:00→20:31)
[2020-05-07] MEDS: HYDROcodone/ACETAMIN 5-325 MG TAB (NORCO/ VICODIN) PO PRN (11:04)
[2020-05-07 12:00] VITALS: BP_SYST 172
[2020-05-07 20:00] VITALS: BP_SYST 148
[2020-05-07] MEDS: POLYETHYLENE GLYCOL 3350, 17 GM/ POWD.PACK PO SCH (20:23)
[2020-05-07] MEDS: INSULIN GLARGINE 100 UNITS/ML 10 ML VIAL SUBCUT SCH (20:28)
[2020-05-07] MEDS ORDERED: ENOXAPARIN SODIUM 30 MG/0.3 ML SYRINGE ONE (20:31)
[2020-05-07] MEDS: DEXAMETHASONE SOD PHOSPHATE 10 MG/ML VIAL IVP SCH (21:00)
[2020-05-08] VITALS: BP_SYST 153
[2020-05-08] MEDS: INSULIN LISPRO SLIDING SCALE 100 UNITS/ML VIAL (humaLOG) SUBCUT PRN ×3 (05:22→22:28)
[2020-05-08] MEDS: NORMAL SALINE 5 ML DISP.SYRIN IVF SCH ×3 (05:25→22:30)
[2020-05-08 06:36] LABS: BASOPHILS % (AUTO) 0.2 % (0.0-2.0); EOSINOPHILS % (AUTO) 0.3 % (0.0-4.0); HEMATOCRIT 30.6 % (36-48); HEMOGLOBIN 10.3 g/dL (12.0-16.0); LYMPHOCYTES # (AUTO) 0.4 K/uL (1.0-5.5); LYMPHOCYTES % (AUTO) 4.9 % (20.5-51.5); MEAN CORPUSCULAR HEMOGLOBIN 27 pg (27-31); MEAN CORPUSCULAR HGB CONC 34 % (32-36); MEAN CORPUSCULAR VOLUME 80 fL (79.0-98.0); MONOCYTES # (AUTO) 0.4 K/uL (0.0-1.0); MONOCYTES % (AUTO) 5.4 % (1.7-9.3); NEUTROPHILS # (AUTO) 7.2 K/uL (1.8-7.7); NEUTROPHILS % (AUTO) 89.2 % (40.0-70.0); PLATELET COUNT (AUTO) 500 K/uL (130-430); RED BLOOD CELL COUNT(AUTO) 3.82 MIL/uL (4.2-6.2); WHITE BLOOD COUNT (AUTO) 8.1 K/uL (4.8-10.8)
[2020-05-08 07:37] LABS: ALANINE AMINOTRANSFERASE 21 U/L (12-78); ALBUMIN 2.1 g/dL (3.4-4.8); ANION GAP 8 (5-15); ASPARTATE AMINOTRANSFERASE 9 U/L (10-37); CALCIUM 8.1 mg/dL (8.4-11.0); CHLORIDE 98 mmol/L (98-107); GLUCOSE 300 mg/dL (70-99); SODIUM SERUM 134 mmol/L (136-145); TOTAL BILIRUBIN 0.2 mg/dL (0.0-1.0); UREA NITROGEN, BLOOD 25 mg/dL (8-21)
[2020-05-08] MEDS ORDERED: ENOXAPARIN SODIUM 30 MG/0.3 ML SYRINGE ONE ×2 (08:03→22:09)
[2020-05-08] MEDS: POLYETHYLENE GLYCOL 3350, 17 GM/ POWD.PACK PO SCH ×2 (08:04→22:26)
[2020-05-08 08:05] VITALS: BP_SYST 160
[2020-05-08] MEDS: lisinopriL 20 MG TABLET PO SCH (08:39)
[2020-05-08] MEDS: ENOXAPARIN SODIUM 30 MG/0.3 ML SYRINGE SUBCUT SCH ×2 (08:39→22:30)
[2020-05-08] MEDS ORDERED: DOCUSATE SODIUM 100 MG CAPSULE PO ONE (10:30)
--- NOTE | 2020-05-08 11:30 | NUR ---
Constipation patient was given scheduled Miralax and PO Colace as well per MD orders, patient still complaining of constipation, encourage patient to drink water and offered prune juice - patient refuses at this time. Spoke with patient's regarding her constipation as well, explained all treatments were given and that the medication does take time to work. I will contact the doctor again if the patient's problem persists, patient's verbalized understanding.
[2020-05-08] MEDS ORDERED: cloNIDine HCL 0.1 MG TABLET ONE (12:37)
[2020-05-08] MEDS: DIPHENHYDRAMINE INJ 50 MG/ML VIAL IVP PRN ×2 (12:40→22:13)
[2020-05-08] MEDS: cloNIDine HCL 0.1 MG TABLET PO PRN (12:40)
--- NOTE | 2020-05-08 12:40 | NUR ---
PRN medication per patient and her 's request, patient was given PRN Benadryl at this time, IV line is patent and infusing well. Educated patient on PRN clonidine due to elevated blood pressure, patient verbalized understanding and tolerated well, continuing to monitor patient. Addendum: 05/08/20 at 1250 by Zacarias Ramirez RN Offered to assisted patient to bedside commode so she can attempt to have BM, patient refused at this time.
[2020-05-08] MEDS ORDERED: SODIUM PHOSPHATE,MONO-DIBASIC 133 ML ENEMA RC ONE (13:00)
[2020-05-08 13:38] VITALS: BP_SYST 185
--- NOTE | 2020-05-08 13:51 | NUR ---
Tap Water Enema done by Masha RN, patient has some stool come out post enema and patient is feeling less bloated now, continuing to monitor patient.
[2020-05-08 16:00] VITALS: BP_SYST 160
[2020-05-08 20:00] VITALS: BP_SYST 154
[2020-05-08] MEDS: DEXAMETHASONE SOD PHOSPHATE 10 MG/ML VIAL IVP SCH (22:26)
[2020-05-08] MEDS: DOCUSATE SODIUM 100 MG CAPSULE PO SCH (22:26)
[2020-05-08] MEDS: INSULIN GLARGINE 100 UNITS/ML 10 ML VIAL SUBCUT SCH (22:29)
[2020-05-09] MEDS: INSULIN LISPRO SLIDING SCALE 100 UNITS/ML VIAL (humaLOG) SUBCUT PRN ×3 (05:32→16:44)
[2020-05-09 06:54] VITALS: BP_SYST 148
[2020-05-09] MEDS: NORMAL SALINE 5 ML DISP.SYRIN IVF SCH ×3 (07:04→22:03)
[2020-05-09 08:00] VITALS: BP_SYST 141
[2020-05-09] MEDS: DOCUSATE SODIUM 100 MG CAPSULE PO SCH ×2 (10:06→21:25)
[2020-05-09] MEDS: lisinopriL 20 MG TABLET PO SCH (10:06)
[2020-05-09] MEDS: POLYETHYLENE GLYCOL 3350, 17 GM/ POWD.PACK PO SCH ×2 (10:06→21:25)
[2020-05-09] MEDS: ENOXAPARIN SODIUM 30 MG/0.3 ML SYRINGE SUBCUT SCH ×2 (10:07→21:00)
[2020-05-09 11:38] VITALS: BP_SYST 178
[2020-05-09 15:24] VITALS: BP_SYST 178
[2020-05-09 15:39] VITALS: BP_SYST 154
[2020-05-09] MEDS ORDERED: cloNIDine HCL 0.1 MG TABLET ONE (16:23)
--- NOTE | 2020-05-09 19:38 | NUR ---
RECEIVED REPORT FROM AM RN. PATIENT IS AWAKE, CALM AND PLEASANTLY SMILING. RESP REG NON-LABORED. NAD NOTED.
[2020-05-09 20:30] VITALS: BP_SYST 169
[2020-05-09] MEDS ORDERED: ENOXAPARIN SODIUM 30 MG/0.3 ML SYRINGE ONE (20:36)
[2020-05-09] MEDS: INSULIN GLARGINE 100 UNITS/ML 10 ML VIAL SUBCUT SCH (21:00)
[2020-05-09] MEDS: DEXAMETHASONE SOD PHOSPHATE 10 MG/ML VIAL IVP SCH (21:26)
--- NOTE | 2020-05-09 22:50 | NUR ---
MED PASS DONE, PT PO MEDS TOLERATED WELL, AWAKE, RESP REGULAR NON-LABORED, WILL CONT TO MONITOR FOR CHANGES. NAD NOTED.
[2020-05-10] VITALS (7 sets, daily range): BP systolic 130–179
[2020-05-10] MEDS ORDERED: cloNIDine HCL 0.1 MG TABLET ONE ×2 (00:07→08:26)
[2020-05-10] MEDS: cloNIDine HCL 0.1 MG TABLET PO PRN ×2 (00:10→08:50)
--- NOTE | 2020-05-10 02:30 | NUR ---
ON ROUNDS PATIENT ASLEEP IN SUPINE POSITION, RESP REG NON- LABORED. PT W/ C/O FEELING COLD, COMFORT MEASURES APPLIED: WARM BLANKET GIVEN. BP RETAKEN AT 0130 IMPROVED S/P CATAPRES PO BP 156/68
[2020-05-10] MEDS: NORMAL SALINE 5 ML DISP.SYRIN IVF SCH ×3 (07:09→22:00)
[2020-05-10] MEDS: INSULIN LISPRO SLIDING SCALE 100 UNITS/ML VIAL (humaLOG) SUBCUT PRN ×3 (07:35→16:40)
--- NOTE | 2020-05-10 07:40 | NUR ---
REPORT GIVEN TO AM RN. PT AWAKE AT INTERVALS, DISCUSSED BLOOD SUGAR OF 308 THIS AM.
[2020-05-10] MEDS ORDERED: ENOXAPARIN SODIUM 30 MG/0.3 ML SYRINGE ONE ×2 (08:27→20:56)
[2020-05-10] MEDS: HYDROcodone/ACETAMIN 5-325 MG TAB (NORCO/ VICODIN) PO PRN ×2 (08:50→10:14)
--- NOTE | 2020-05-10 08:55 | NUR ---
OPENING ASSUMED PT FROM NOC NURSE. NO ACUTE EVENTS DURING THE NIGHT. PT IS ALERT IN BED EATING BREAKFAST. PT O2 SATS 95 % AT THIS TIME WITH OXYMIZER IN PLACE. WILL CONTINUE TO MONITOR.
--- NOTE | 2020-05-10 08:55 | NUR ---
CONSTIPATION PT C/O PAIN IN ABDOMEN. BS IN ALL 4 QUADS HYPOACTIVE. PT ABDOMEN HARD AND DISTENDED. SPOKE WITH DR. RIVERA WHO GAVE NEW ORDER FOR FLEETS ENEMA. PT NOTIFIED.
[2020-05-10] MEDS: lisinopriL 20 MG TABLET PO SCH (09:09)
[2020-05-10] MEDS: DOCUSATE SODIUM 100 MG CAPSULE PO SCH ×2 (09:09→21:20)
[2020-05-10] MEDS: POLYETHYLENE GLYCOL 3350, 17 GM/ POWD.PACK PO SCH ×2 (09:09→21:20)
[2020-05-10] MEDS: ENOXAPARIN SODIUM 30 MG/0.3 ML SYRINGE SUBCUT SCH ×2 (09:15→21:20)
[2020-05-10] MEDS ORDERED: SODIUM PHOSPHATE,MONO-DIBASIC 133 ML ENEMA RC ONE ×3 (09:15)
--- NOTE | 2020-05-10 10:38 | NUR ---
ENEMA ENEMA GIVEN AT THIS TIME WITH NO RESULTS
--- NOTE | 2020-05-10 10:50 | NUR ---
FAMILY COMMUNICATION Gila PAULA CALLED REGARDING PT ABDOMINAL PAIN AND HX OF CONSTIPATION. UPDATED ON POC.
[2020-05-10] MEDS: INSULIN GLARGINE 100 UNITS/ML 10 ML VIAL SUBCUT SCH (21:20)
[2020-05-10] MEDS: DEXAMETHASONE SOD PHOSPHATE 10 MG/ML VIAL IVP SCH (21:20)
[2020-05-11] VITALS: BP_SYST 141
[2020-05-11] MEDS: INSULIN LISPRO SLIDING SCALE 100 UNITS/ML VIAL (humaLOG) SUBCUT PRN ×3 (06:21→18:22)
[2020-05-11] MEDS: NORMAL SALINE 5 ML DISP.SYRIN IVF SCH ×2 (06:30→14:00)
[2020-05-11] MEDS: lisinopriL 20 MG TABLET PO SCH (09:00)
[2020-05-11] MEDS: POLYETHYLENE GLYCOL 3350, 17 GM/ POWD.PACK PO SCH (09:52)
[2020-05-11] MEDS: DOCUSATE SODIUM 100 MG CAPSULE PO SCH (09:53)
[2020-05-11] MEDS ORDERED: ENOXAPARIN SODIUM 30 MG/0.3 ML SYRINGE ONE (09:56)
[2020-05-11] MEDS: ENOXAPARIN SODIUM 30 MG/0.3 ML SYRINGE SUBCUT SCH (10:04)
[2020-05-11 11:27] LABS: ANION GAP 7 (5-15); CALCIUM 7.8 mg/dL (8.4-11.0); CHLORIDE 98 mmol/L (98-107); GLUCOSE 277 mg/dL (70-99); POTASSIUM 4.2 mmol/L (3.5-5.1); SODIUM SERUM 131 mmol/L (136-145); UREA NITROGEN, BLOOD 27 mg/dL (8-21)
[2020-05-11 11:39] VITALS: BP_SYST 127
[2020-05-11] MEDS: DIPHENHYDRAMINE INJ 50 MG/ML VIAL IVP PRN (12:15)
--- NOTE | 2020-05-11 13:43 | NUR ---
DISCHARGE ORDER LEFT MESSAGE TO ARMEN LASSITER THAT DR RIVERA WANTS PATIENT TO BE DC TO SNF, WITH ORDERED FOR P,THERAPY TO EVALUATE PATIENT. LUANNE MADE AWARE ABOUT PLANNING TO DISCHARGE TO SNF FOR REHAB AND IV ANTIBIOTIC.
[2020-05-11] MEDS ORDERED: HEPA500015 SUBCUT (15:32)
[2020-05-11] MEDS ORDERED: DOCU-144 PO (15:34)
[2020-05-11] MEDS ORDERED: INSU100V9 SQ (15:36)
[2020-05-11] MEDS ORDERED: ROCPM1 IV (15:37)
[2020-05-11] MEDS ORDERED: LISI-600 PO (15:38)
[2020-05-11] MEDS ORDERED: DEC4 PO (15:38)
[2020-05-11] MEDS ORDERED: POLY17PO4 PO (15:40)
[2020-05-11 15:47] VITALS: BP_SYST 129
[2020-05-11 16:48] VITALS: BP_SYST 144
--- NOTE | 2020-05-11 18:46 | NUR ---
closing note: AxOx4, anxious, cooperative. Moderate appetite. Blood sugars 214 and 154. PRN benadryl this am. Had medium soft BM this afternoon. [facility]. Report given. Spouse Rd notified.
[2020-05-11] MEDS ORDERED: DIPHENHYDRAMINE HCL 50 MG CAPSULE ONE (19:43)
[2020-05-11] MEDS ORDERED: DIPHENHYDRAMINE HCL 50 MG CAPSULE PO ONE (19:45)
--- NOTE | 2020-05-11 19:45 | NUR ---
Dr. Dye s/w Dr Dye and informed patient anxious and requesting Benadryl. Received medication order Benadryl 50mg PO one time, TORB.
--- NOTE | 2020-05-11 19:50 | NUR ---
Benadryl Benadryl PO given to patient, removed ID band, IV to left wrist and estrada catheter in place, patent.
--- NOTE | 2020-05-11 20:05 | NUR ---
Discharage PT TRANSFERRED to [facility]. Report given to facility by CHAY Ferrer. Transfer packet with Transfer Orders and Medication Reconciliation form given to EMT with report by CHAY Briones (am shift). Exitcare provided. [facility] ID band removed, replaced with ID band with pt's name and . IV catheter intact and kept in place. Hazel catheter kept in place. All belongings sent with patient. Patient left floor via gurney escorted by EMT in no distress.
[2020-05-11] MEDS ORDERED: DEXAMETHASONE SOD PHOSPHATE 10 MG/ML VIAL PO SCH (21:00)
== END 2020-05-11 20:05 | DRG 871 ==
LOC: SED 15:34 → STU 19:11 → SIC 05-05 00:11 → STU 05-05 00:14 → SIC 05-05 00:19 → STU 05-06 23:30
PROVIDERS: ADMIT Internal Medicine Hospice and Palliative Medicine; ATTEND Internal Medicine Hospice and Palliative Medicine
PROC: XW13325 Transfusion of Convalescent Plasma (Nonautologous) into Peripheral Vein, Percutaneous Approach, New Technology Group 5 (ICD-10-PCS; principal; 2020-05-03)
PROC: XW033E5 Introduction of Remdesivir Anti-infective into Peripheral Vein, Percutaneous Approach, New Technology Group 5 (ICD-10-PCS; 2020-05-03)
PROC: 5A09357 Assistance with Respiratory Ventilation, Less than 24 Consecutive Hours, Continuous Positive Airway Pressure (ICD-10-PCS; 2020-05-04)
DX: A41.9 Sepsis, unspecified organism (principal); U07.1 COVID-19; J12.82 Pneumonia due to coronavirus disease 2019; J96.01 Acute respiratory failure with hypoxia; E43 Unspecified severe protein-calorie malnutrition; J15.9 Unspecified bacterial pneumonia; N17.9 Acute kidney failure, unspecified; E87.1 Hypo-osmolality and hyponatremia; E66.9 Obesity, unspecified; I10 Essential (primary) hypertension; E11.65 Type 2 diabetes mellitus with hyperglycemia; Z79.4 Long term (current) use of insulin; Z83.3 Family history of diabetes mellitus; Z79.899 Other long term (current) drug therapy; Z68.27 Body mass index [BMI] 27.0-27.9, adult
CPT/HCPCS: 36415; 36430; 36600; 71045; 80048; 80053; 81000-TC; 82728; 82803-TC; 82962; 83036; 83605; 83735-TC; 83880; 84100-TC; 84484; 85025; 85379; 85384-TC; 85610-TC; 85730-TC; 86140; 86886; 86900; 86901; 87040-TC; 87086; 93005; 94660; 94760; 96374; 97163; 99285; G0378; J0456; J0696; J1100; J1200; J1650; J1815; J2405; J7030; J7050; J7060; P9017; Q0163; U0003

== ENCOUNTER 2021-01-04 17:02 | Emergency (ER) | payer OTHER, MEDICAID ==
[~2021-01-04] VITALS: Ht 157.5 cm; Wt 69.4 kg
[~2021-01-04 17:02] MED LIST changes: +DEC4 PO; +DOCU-144 PO; +HEPA500015 SUBCUT; -INSU100V SQ; -LISI-600 PO; +LISI20TA30 PO; -LOSA25TA3 PO; -METF1000 PO; +POLY17PO4 PO; +ROCPM1 IV
[2021-01-04 17:20] VITALS: BP_SYST 167
--- NOTE | 2021-01-04 17:20 | NUR ---
Pt to bed 4 for evaluation with report given to CHAY Miranda.
--- NOTE | 2021-01-04 17:29 | NUR ---
Pt. bib stating at night her BP gets elevated, hx. of htn. and diabetes, pt. states she has ankle swelling x 1 week, on assessment no edema noted
--- NOTE | 2021-01-04 19:30 | NUR ---
PT RECEIVED AND REPORT FROM DAY RNAGUSTINA NO DISTRESS NOTED NO EDEMA TO EXTREMITIESMOTED.DR BHATIA TO EXAM
[2021-01-04 20:51] LABS: BASOPHILS % (AUTO) 0.6 % (0.0-2.0); EOSINOPHILS # (AUTO) 0.4 K/uL (0.0-0.4); EOSINOPHILS % (AUTO) 6.4 % (0.0-4.0); HEMATOCRIT 31.5 % (36-48); HEMOGLOBIN 10.6 g/dL (12.0-16.0); LYMPHOCYTES # (AUTO) 1.7 K/uL (1.0-5.5); LYMPHOCYTES % (AUTO) 26.2 % (20.5-51.5); MEAN CORPUSCULAR HEMOGLOBIN 26 pg (27-31); MEAN CORPUSCULAR HGB CONC 34 % (32-36); MEAN CORPUSCULAR VOLUME 78 fL (79.0-98.0); MONOCYTES # (AUTO) 0.5 K/uL (0.0-1.0); NEUTROPHILS # (AUTO) 3.9 K/uL (1.8-7.7); NEUTROPHILS % (AUTO) 59.8 % (40.0-70.0); PLATELET COUNT (AUTO) 330 K/uL (130-430); RED BLOOD CELL COUNT(AUTO) 4.04 MIL/uL (4.2-6.2); RED CELL DISTRIBUTION WIDTH 15.2 % (9.0-15.0); WHITE BLOOD COUNT (AUTO) 6.5 K/uL (4.8-10.8)
[2021-01-04 21:17] LABS: ANION GAP 8 (5-15); CALCIUM 8.6 mg/dL (8.4-11.0); CHLORIDE 101 mmol/L (98-107); CREATININE 1.06 mg/dL (0.55-1.30); GLUCOSE 112 mg/dL (70-99); SODIUM SERUM 135 mmol/L (136-145); UREA NITROGEN, BLOOD 19 mg/dL (8-21)
[2021-01-04 21:26] LABS: ALANINE AMINOTRANSFERASE 25 U/L (12-78); ALBUMIN 3.3 g/dL (3.4-4.8); ASPARTATE AMINOTRANSFERASE 15 U/L (10-37); TOTAL BILIRUBIN 0.2 mg/dL (0.0-1.0)
--- NOTE | 2021-01-04 22:25 | NUR ---
Patient given written and verbal discharge instructions and verbalizes understanding. ER MD BHATIA discussed with patient the results and treatment provided. Patient in stable condition. ID arm band removed. Patient educated on pain management and to follow up with PMD. Pain Scale 0/10. Opportunity for questions provided and answered. Medication side effect fact sheet provided.
[2021-01-04 22:29] VITALS: BP_SYST 110
== END 2021-01-04 22:29 | disposition home or self-care (01) ==
LOC: SED 17:02
DX: R60.0 Localized edema (principal); I10 Essential (primary) hypertension; E11.9 Type 2 diabetes mellitus without complications; Z79.4 Long term (current) use of insulin; Z79.899 Other long term (current) drug therapy
CPT/HCPCS: 36415; 71045; 80053; 83880; 84484; 85025; 93005; 99285